=== PATIENT | male | born 1995 | race American Indian/Alaskan Native ===

== ENCOUNTER 2017-07-04 19:00 | Emergency (ER) | payer OTHER ==
[2017-07-04 19:11] VITALS: BP 133/84
[2017-07-04] MEDS ORDERED: hyperRAB S/D IM ONE (20:20)
[2017-07-04] MEDS ORDERED: RABAVERT RABIES VACCINE(PCEC) IM ONE (20:20)
[2017-07-04] MEDS ORDERED: BOOSTRIX IM ONE (21:46)
--- NOTE | 2017-07-04 21:56 | Emergency Department Report ---
ED Animal Bite HPI - General Chief Complaint: Animal Bite Stated Complaint: DOG BITE Time Seen by Provider: 07/04/17 20:16 Source: patient Mode of arrival: Ambulatory Limitations: No Limitations - History of Present Illness Initial Comments: This is a 22-year-old male nontoxic, well nourished in appearance, no acute signs of distress presents to the ED with c/o of dog bite that occurred this evening around 4 hours ago. Patient stated he was walking and a strayed dog of unknown bite his right knee. Patient denies any other trauma. Denies any numbness, tingling, fever, chills, headache, nausea, vomiting, chest pain, shortness of breathe. Patient stated he did not call animal control about the incident. Patient denies any allergies or PMH. Patient stated is not up to date with tetanus vaccines. MD Complaint: animal bite -: This evening (6 pm) Right: Knee Animal: dog Animal Control Notified: No Description: unknown animal Mechanism: bite Pain Description: dull Severity scale (0 -10): 8 Context: unprovoked Associated Symptoms: denies: erythema, discharge from wound, bleeding, fever, chills, rash, loss of consciousness, cough, headache, diaphoresis, shortness of breath - Related Data Patient Tetanus UTD: No Previous Rx's Medication Instructions Recorded Last Taken Type Amoxicillin/K Clav Tab [Augmentin 1 tab PO Q12HR #20 tab 07/04/17 Unknown Rx 875 mg] Ibuprofen [Motrin] 600 mg PO Q8H PRN #30 tablet 07/04/17 Unknown Rx Allergies Allergy/AdvReac Type Severity Reaction Status Date / Time No Known Allergies Allergy Unverified 07/04/17 19:10 ED Review of Systems ROS: Stated complaint: DOG BITE Other details as noted in HPI Constitutional: denies: chills, fever Eyes: denies: eye pain, eye discharge, vision change ENT: denies: ear pain, throat pain Respiratory: denies: cough, shortness of breath, wheezing Cardiovascular: denies: chest pain, palpitations Endocrine: no symptoms reported Gastrointestinal: denies: abdominal pain, nausea, diarrhea Genitourinary: denies: urgency, dysuria Musculoskeletal: denies: back pain, joint swelling, arthralgia Skin: other (abrasion). denies: rash, lesions Neurological: denies: headache, weakness, paresthesias Psychiatric: denies: anxiety, depression Hematological/Lymphatic: denies: easy bleeding, easy bruising ED Past Medical Hx - Past Medical History Previous Medical History?: No - Surgical History Past Surgical History?: No - Social History Smoking Status: Current Every Day Smoker Substance Use Type: None - Medications Home Medications: Home Medications Medication Instructions Recorded Confirmed Last Taken Type Amoxicillin/K Clav Tab [Augmentin 1 tab PO Q12HR #20 tab 07/04/17 Unknown Rx 875 mg] Ibuprofen [Motrin] 600 mg PO Q8H PRN #30 tablet 07/04/17 Unknown Rx ED Physical Exam - General Limitations: No Limitations General appearance: alert, in no apparent distress - Head Head exam: Present: atraumatic, normocephalic, normal inspection - Eye Eye exam: Present: normal appearance, PERRL, EOMI. Absent: scleral icterus, conjunctival injection, nystagmus, periorbital swelling, periorbital tenderness Pupils: Present: normal accommodation - ENT ENT exam: Present: normal exam, normal orophraynx, mucous membranes moist, TM's normal bilaterally, normal external ear exam - Neck Neck exam: Present: normal inspection, full ROM. Absent: tenderness, meningismus, lymphadenopathy, thyromegaly - Respiratory Respiratory exam: Present: normal lung sounds bilaterally. Absent: respiratory distress, wheezes, rales, rhonchi, stridor, chest wall tenderness, accessory muscle use, decreased breath sounds, prolonged expiratory - Cardiovascular Cardiovascular Exam: Present: regular rate, normal rhythm, normal heart sounds. Absent: bradycardia, tachycardia, irregular rhythm, systolic murmur, diastolic murmur, rubs, gallop - GI/Abdominal GI/Abdominal exam: Present: soft, normal bowel sounds. Absent: distended, tenderness, guarding, rebound, rigid, diminished bowel sounds - Rectal Rectal exam: Present: deferred - Extremities Exam Extremities exam: Present: normal inspection, full ROM, tenderness, normal capillary refill. Absent: pedal edema, joint swelling, calf tenderness - Expanded Lower Extremity Exam Right Hip exam: Present: normal inspection, full ROM Upper Leg exam: Present: normal inspection, full ROM Knee exam: Present: normal inspection, full ROM, tenderness, abrasion, full knee extension. Absent: swelling, laceration, ecchymosis, deformity, crepidus, dislocation, erythema, effusion, pain w/ pronation/supination, posterior draw sign, pain/laxity with valgus, pain/laxity with varus Lower Leg exam: Present: normal inspection, full ROM Ankle exam: Present: normal inspection, full ROM Foot/Toe exam: Present: normal inspection, full ROM Neuro vascular tendon exam: Present: no vascular compromise. Absent: pulse deficit, abnormal cap refill, motor deficit, sensory deficit, tendon deficit, extremity cold to touch, pallor, abnormal 2-point discrimination, decreased fine /light touch, foot drop, peroneal nerve deficit, significant pain with passive ROM of distal joint Gait: Positive: observed and normal - Back Exam Back exam: Present: normal inspection, full ROM. Absent: tenderness, CVA tenderness (R), CVA tenderness (L), muscle spasm, paraspinal tenderness, vertebral tenderness, rash noted - Neurological Exam Neurological exam: Present: alert, oriented X3, CN II-XII intact, normal gait, reflexes normal - Psychiatric Psychiatric exam: Present: normal affect, normal mood - Skin Skin exam: Present: warm, dry, intact, normal color. Absent: rash ED Course Vital Signs 07/04/17 19:06 Temperature 97.9 F Pulse Rate 68 Respiratory 16 Rate Blood Pressure 133/84 O2 Sat by Pulse 100 Oximetry - Reevaluation(s) Reevaluation #1: 07/04/17 22:03 Patient is speaking in full sentences with no signs of distress noted. - Consultations Consultation #1: 07/04/17 22:03 Dr. Lagunas has be consulted about the patient history, physical exam and out of stock of rabies immune globulin and agrees to plan of care for patient to go to another hospital. Consultation #2: 07/04/17 22:04 Virgilio charge nurse from [facility] has been contacted which he stated to me that he has the rabies immune globulin and he was aware of patient going to report to him at discharge. Critical care attestation.: If time is entered above; I have spent that time in minutes in the direct care of this critically ill patient, excluding procedure time. ED Disposition Clinical Impression: Dog bite Qualifiers: Encounter type: initial encounter Qualified Code(s): W54.0XXA - Bitten by dog, initial encounter Disposition: TO HOME OR SELFCARE Is pt being admited?: No Does the pt Need Aspirin: No Condition: Stable Instructions: Ibuprofen (By mouth), Amoxicillin/Clavulanate Potassium (By mouth ), Animal Bite (ED), Acute Wound Care (ED) Additional Instructions: As directed and instructed to you, must go to [facility] after discharge and speak with the charge nurse Virgilio to receive the rabies immunoglobulin as this is very important. Please know that you have already received the rabies vaccine and Tetanus in the ED here. Follow-up with a primary care doctor in 3-5 days or if symptoms worsen and continue return to emergency room as soon as possible. Prescriptions: Amoxicillin/K Clav Tab [Augmentin 875 mg] 1 tab PO Q12HR #20 tab Ibuprofen [Motrin] 600 mg PO Q8H PRN #30 tablet PRN Reason: Pain Referrals: PRIMARY CAREMD [Primary Care Provider] - 3-5 Days SANGITA RESTREPO MD [Staff Physician] - 3-5 Days [facility] [Outside] - 3-5 Days [facility] [Outside] - 3-5 Days Forms: Work/School Release Form(ED) ED Medical Decision Making - Medical Decision Making 22-year-old male that presents with a dog bite. Patient is stable and was examinued by me. Patient received rabies immunization and tetanus booster. Kiet from pharmacy called me and stated that they are currently out of rabies immunoglobulin. I contacted Dr. Park which she stated to me the patient was given rabies immunoglobulin and the patient be seen by another hospital to receive this. Virgilio the charge nurse from [facility] has been contacted which he stated they have this in stock and I stated that patient will be discharge and going to their hospital to received the rabies immune globulin, as he stated he will look at for this patient. The area has been cleaned and washed with soap and water. The patient to be transported by ambulance to [facility] the patient he will drive right after he gets discharged from this hospital. I strictly enforced and the patient that this is very important to see if anything he will follow up after discharge to get the rabies immune globulin. Patient is discharged with Augmentin and Motrin. Patient was instructed Follow-up with a primary care doctor in 3-5 days or if symptoms worsen and continue return to emergency room as soon as possible. At time time of discharge, the patient does not seem toxic or ill in appearance. No acute signs of distress noted. Patient agrees to discharge treatment plan of care. No further questions noted by the patient. Animal control has been notified by Mario Car Rider.
== END 2017-07-04 23:00 | disposition home or self-care (01) ==
LOC: ED 19:00
DX: S80.211A Abrasion, right knee, initial encounter (principal); F17.200 Nicotine dependence, unspecified, uncomplicated; Z79.899 Other long term (current) drug therapy; W54.0XXA Bitten by dog, initial encounter; Y93.89 Activity, other specified; Y92.89 Other specified places as the place of occurrence of the external cause; Y99.8 Other external cause status
CPT/HCPCS: 90375; 90471; 90675; 90715; 96372; 99282